=== PATIENT | female | born 1980 | race Two or more races ===

== ENCOUNTER 2018-04-26 23:24 | Emergency (ER) | payer MEDICAID ==
[~2018-04-26] VITALS: Ht 162.6 cm; Wt 72.6 kg
[2018-04-26] MEDS ORDERED: METRONIDAZOLE500 MG ORAL (23:42)
[2018-04-26] MEDS ORDERED: CIPRO250 MG ORAL (23:42)
[2018-04-27] MEDS ORDERED: Ketorolac 30mg Inj IV ONE
--- NOTE | 2018-04-27 | NUR ---
ED Nurse Note: RECIEVED PT ON GURNEY FROM HOME, AWAKE, ALERT AND ORIENTED X 4, PT HERE WITH C/O LOWER ABD PAIN X 1 WEEK, PT SEEN BY PMD AND STARTED ON ORAL ANTIBIOTICS BUT STATES PAIN IS WORSE IN LOWER ABD, MILD NAUSEA ALSO, EMESIS X 2 TODAY, PT DENEIS CP, SOB, FEVERS, OR ANY OTHER COMPLAINTS OR DISCOMFORTS, PT GOWNED AND URINE SAMPLE COLLECTED, WILL RESUME CARE ORDERED AND CONTINUE TO CLOSELY MONITOR.
[2018-04-27] MEDS ORDERED: Ketorolac 60mg Inj IM ONE (00:33)
[2018-04-27 00:40] VITALS: BP 116/71
[2018-04-27 00:42] LABS: BASOPHILS % (AUTO) 0.8 % (0.0-2.0); EOSINOPHILS % (AUTO) 2.8 % (0.0-3.0); HEMOGLOBIN 12.7 G/DL (12.0-16.0); LYMPHOCYTES % (AUTO) 21.1 % (20.0-45.0); MEAN CORPUSCULAR VOLUME 80 FL (80-99); MONOCYTES % (AUTO) 6.2 % (1.0-10.0); NEUTROPHILS % (AUTO) 69.2 % (45.0-75.0); PLATELET COUNT 263 K/UL (150-450); RED BLOOD COUNT 4.72 M/UL (4.20-5.40); RED CELL DISTRIBUTION WIDTH 12.9 % (11.6-14.8); WHITE BLOOD COUNT 10.9 K/UL (4.8-10.8)
[2018-04-27 00:43] LABS: APPEARANCE,URINE CLEAR; BILIRUBIN, URINE NEGATIVE (NEGATIVE); COLOR,URINE PALE YELLOW; GLUCOSE, URINE (UA) NEGATIVE (NEGATIVE); KETONES,URINE NEGATIVE (NEGATIVE); LEUKOCYTE ESTERASE ,URINE 1+ (NEGATIVE); NITRITE,URINE NEGATIVE (NEGATIVE); PH,URINE 5 (4.5-8.0); PROTEIN,URINE NEGATIVE (NEGATIVE); UROBILINOGEN,URINE NORMAL MG/DL (0.0-1.0)
[2018-04-27 00:58] LABS: ANION GAP 7 mmol/L (5-15); BLOOD UREA NITROGEN 17 mg/dL (7-18); CARBON DIOXIDE 26 MMOL/L (21-32); CHLORIDE 104 MMOL/L (98-107); CREATININE 0.8 MG/DL (0.55-1.30); POTASSIUM 3.6 MMOL/L (3.5-5.1); SODIUM 137 MMOL/L (136-145)
[2018-04-27 01:03] LABS: ALANINE AMINOTRANSFERASE 28 U/L (12-78); ALBUMIN 3.9 G/DL (3.4-5.0); ALBUMIN/GLOBULIN RATIO 1.3 (1.0-2.7); ALKALINE PHOSPHATASE 57 U/L (46-116); ASPARTATE AMINO TRANSFERASE 16 U/L (15-37); BILIRUBIN,TOTAL 0.2 MG/DL (0.2-1.0)
[2018-04-27 02:00] VITALS: BP 124/63
--- NOTE | 2018-04-27 02:00 | NUR ---
ED Nurse Note: PT CONTINUES TO REST QUIETLY IN BED, AWAKE AND ALERT, PT MEDICATED FOR PAIN, MEDS EFFECTIVE, PAIN LEVEL AT 1/10, NO CP, NO SOB, IV SITE PATENT WITH FLUIDS INFUSING, TOLERATING WELL, NAUSEA RESOLVED ALSO, PT ON CARDIAC MONITORING, WILL RESUME CARE AND CONTINUE TO CLOSELY MONITOR.
--- NOTE | 2018-04-27 03:26 | Emergency Room Report ---
History of Present Illness General Chief Complaint: Abdominal Pain Source: Patient Present Illness HPI Patient presents with left lower quadrant pain this began back in February when she had a massage. She feels that something happened at that time. Last she had a pelvic exam. The doctor did a rectovaginal exam that was painful for the patient. She feels that the pain was exacerbated that time. She was started on Cipro and Flagyl for vaginal bacterial infection. She's felt dizziness and feverish but no documented temperature. Still feels nausea. The pain is rated 9/10, aching pressure. It radiated to his somewhat towards her back. She rates the pain 10/10 at this time. The patient's last period was April 09 and normal for her. She denies renal stones or dysuria. There is no vaginal discharge. No upper respiratory symptoms, dyspnea, cough chest pain. Allergies: Coded Allergies: No Known Allergies (Unverified , 04/26/18) Patient History Past Medical History: see triage record Social History: Denies: smoking Social History Narrative Last Menstrual Period: 03/09/2018 Now: No Reviewed Nursing Documentation: PMH: Agreed; PSxH: Agreed Nursing Documentation-PMH Past Medical History: No Stated History Review of Systems All Other Systems: negative except mentioned in HPI Physical Exam Vital Signs Date Time Temp Pulse Resp B/P (MAP) Pulse Ox O2 Delivery O2 Flow Rate FiO2 04/26/18 23:36 97.7 86 16 124/73 98 Room Air Sp02 EP Interpretation: reviewed, normal General Appearance: well appearing, no apparent distress, GCS 15 Head: normocephalic Eyes: bilateral eye normal inspection, bilateral eye PERRL ENT: moist mucus membranes Neck: supple Respiratory: lungs clear, normal breath sounds Cardiovascular #1: regular rate, rhythm Cardiovascular #2: 2+ radial (R) Gastrointestinal: normal inspection, normal bowel sounds, non-distended, no rebound, guarding - Minimal, tenderness - Left lower quadrant, overweight Genitourinary: no CVA tenderness Musculoskeletal: back normal, gait/station normal, normal range of motion Neurologic: alert, oriented x3, grossly normal Psychiatric: mood/affect normal Skin: normal inspection, warm/dry Medical Decision Making Diagnostic Impression: Primary Impression: Pelvic pain Additional Impression: Yeast vaginitis ER Course Patient presents with left lower quadrant pain on Flagyl and Cipro. Differential includes ovarian cyst, ovarian torsion, muscle strain, tubo- ovarian abscess, UTI, pyelonephritis, diverticulitis amongst others. Patient will be evaluated with labs. The patient will receive IV hydration and analgesia. Depending on results she may undergo CT or ultrasound. Patient slightly improved after receiving analgesia. White count minimally elevated. CMP normal. Urinalysis with yeast. Because of leukocytosis and pain ultrasound is ordered. Ultrasound unremarkable. The patient had refused transvaginal exam - see report below If this were diverticulitis she is already on medications. The abdominal exam is nonsurgical. Pain is resolved. Discussed findings with patient and . Also discussed treatment plan. Advised that she needed to follow-up. She was given copies of the ultrasound report and labs. Patient stable for outpatient observation and treatment. Laboratory Tests Test 04/27/18 00:15 White Blood Count 10.9 K/UL (4.8-10.8) H Red Blood Count 4.72 M/UL (4.20-5.40) Hemoglobin 12.7 G/DL (12.0-16.0) Hematocrit 38.0 % (37.0-47.0) Mean Corpuscular Volume 80 FL (80-99) Mean Corpuscular Hemoglobin 26.8 PG (27.0-31.0) L Mean Corpuscular Hemoglobin Concent 33.3 G/DL (32.0-36.0) Red Cell Distribution Width 12.9 % (11.6-14.8) Platelet Count 263 K/UL (150-450) Mean Platelet Volume 7.1 FL (6.5-10.1) Neutrophils (%) (Auto) 69.2 % (45.0-75.0) Lymphocytes (%) (Auto) 21.1 % (20.0-45.0) Monocytes (%) (Auto) 6.2 % (1.0-10.0) Eosinophils (%) (Auto) 2.8 % (0.0-3.0) Basophils (%) (Auto) 0.8 % (0.0-2.0) Prothrombin Time 10.5 SEC (9.30-11.50) Prothrombin Time INR 1.0 (0.9-1.1) PTT 27 SEC (23-33) Urine Color Pale yellow Urine Appearance Clear Urine pH 5 (4.5-8.0) Urine Specific [place] 1.015 (1.005-1.035) Urine Protein Negative (NEGATIVE) Urine Glucose (UA) Negative (NEGATIVE) Urine Ketones Negative (NEGATIVE) Urine Blood Negative (NEGATIVE) Urine Nitrite Negative (NEGATIVE) Urine Bilirubin Negative (NEGATIVE) Urine Urobilinogen Normal MG/DL (0.0-1.0) Urine Leukocyte Esterase 1+ (NEGATIVE) H Urine RBC 0-2 /HPF (0 - 2) Urine WBC 0-2 /HPF (0 - 2) Urine Squamous Epithelial Cells Few /LPF (NONE/OCC) Urine Bacteria Few /HPF (NONE) Urine Yeast Occasional /HPF (NONE) H Urine HCG, Qualitative Negative (NEGATIVE) Sodium Level 137 MMOL/L (136-145) Potassium Level 3.6 MMOL/L (3.5-5.1) Chloride Level 104 MMOL/L (98-107) Carbon Dioxide Level 26 MMOL/L (21-32) Anion Gap 7 mmol/L (5-15) Blood Urea Nitrogen 17 mg/dL (7-18) Creatinine 0.8 MG/DL (0.55-1.30) Estimate Glomerular Filtration Rate > 60 mL/min (>60) Glucose Level 104 MG/DL (74-106) Calcium Level 9.0 MG/DL (8.5-10.1) Total Bilirubin 0.2 MG/DL (0.2-1.0) Aspartate Amino Transferase (AST) 16 U/L (15-37) Alanine Aminotransferase (ALT) 28 U/L (12-78) Alkaline Phosphatase 57 U/L (46-116) Total Protein 6.9 G/DL (6.4-8.2) Albumin 3.9 G/DL (3.4-5.0) Globulin 3.0 g/dL Albumin/Globulin Ratio 1.3 (1.0-2.7) Lipase 168 U/L (73-393) CT/MRI/US Diagnostic Results CT/MRI/US Diagnostic Results : Imaging Test Ordered: pelvic Impression Thickened endometrial complex in the setting of a negative beta-hCG. Assessment is limited without transvaginal examination. Differential may include hyperplasia or neoplasm. Further workup/follow-up suggested. Last Vital Signs Date Time Temp Pulse Resp B/P (MAP) Pulse Ox O2 Delivery O2 Flow Rate FiO2 04/27/18 04:40 98.6 80 18 129/72 100 Room Air Status: improved Disposition: HOME, SELF-CARE Condition: Improved Scripts Clotrimazole (GYNE-LOTRIMIN*) 45 Gm Cream.appl 1 APPLIC VG QHS for 7 Days, #45 GM 0 Refills Prov: Rohit Cadena MD 04/27/18 Tramadol Hcl* (ULTRAM*) 50 Mg Tablet 50 MG ORAL Q6H PRN for For Pain, #8 TAB 0 Refills Prov: Rohit Cadena MD 04/27/18 Ibuprofen* (MOTRIN*) 600 Mg Tablet 600 MG ORAL Q6H PRN for For Pain, #20 TAB Prov: Rohit Cadena MD 04/27/18 Rohit Cadena MD Apr 27, 2018 03:26
--- NOTE | 2018-04-27 03:44 | Diagnostic Imaging Report ---
EXAM: US Pelvis Complete, Transabdominal CLINICAL HISTORY: ABD PAIN TECHNIQUE: Real-time transabdominal pelvic ultrasound (complete) with image documentation. COMPARISON: No relevant prior studies available. FINDINGS: Uterus/cervix: Endometrial complex measures 2 cm. No uterine mass or fibroid. Right ovary: Blood flow to both ovaries. Right ovary measures 3.3 x 3. 8 x 2.3 cm. Left ovary measures 4.2 x 4.1 x 2.9 cm. Left ovary: See above. Free fluid: Free fluid in the pelvic cul-de-sac is nonspecific and small-volume. No adnexal masses. Bladder: Unremarkable as visualized. Wall is normal thickness for degree of distention. Other findings: The hCG is reported to be negative. Patient refused transvaginal examination. IMPRESSION: Thickened endometrial complex in the setting of a negative beta-hCG. Assessment is limited without transvaginal examination. Differential may include hyperplasia or neoplasm. Further workup/follow-up suggested. <MYCVCSECTION> Critical Value Communications 04/27/18 03:55 Verify Receipt Verified receipt with Dr. Cadena (also relayed verbal) on 04/27 03:54 (-08:00)
--- NOTE | 2018-04-27 04:00 | NUR ---
ED Nurse Note: PT RETURNED FROM ULTRASOUND, PAIN AT 2/10, DENIES NAUSEA OR EMESIS, PT STATES SHE FEELS BETTER, REPLACED ON MONITORING, IV SITE PATENT, AT BEDSIDE, WILL CONTINUE TO CLOSELY MONITOR AND PREPARE FOR DISPO AFTER RESULTS.
[2018-04-27 04:15] VITALS: BP 129/72
[2018-04-27] MEDS ORDERED: GYNE-LOTRIMIN45 GM VG (04:16)
[2018-04-27] MEDS ORDERED: IBUPROFEN600 MG ORAL (04:16)
[2018-04-27] MEDS ORDERED: TRAMADOL HCL50 MG ORAL (04:16)
--- NOTE | 2018-04-27 04:30 | NUR ---
ED Nurse Note: PT BEING D/C TO HOME, AWAKE, ALERT AND ORIENTED X 4, AMBULATORY, NO PAIN, NO EMESIS, NO SOB OR LABORED BREATHING, PT AND SPOUSE GIVEN F/U INFO,A FTER CARE INSTRUCTIONS AND RE-VERBALIZES PROPER MEDICATION ADMINISTRATION AND S/S TO MONITOR FOR, PT IV LINE AND ARMBAND REMOVED WITHOUT COMPLICATIONS, NAD NOTED DURING D/C TO HOME.
[2018-04-27 04:40] VITALS: BP 129/72
== END 2018-04-27 04:40 | disposition home or self-care (01) ==
LOC: EMR 23:55
DX: R10.2 Pelvic and perineal pain (principal); B37.3 Candidiasis of vulva and vagina
CPT/HCPCS: 36415; 76856; 80053; 81003; 81025; 83690; 85025; 85610; 85730; 87086; 96361; 96372; 96374; 96375; 99284; J2405

== ENCOUNTER 2020-01-25 10:35 | Emergency (ER) | payer MEDICAID ==
[~2020-01-25] VITALS: Ht 162.6 cm; Wt 79.4 kg
[~2020-01-25 10:35] MED LIST: CIPRO250 MG ORAL; GYNE-LOTRIMIN45 GM VG; IBUPROFEN600 MG ORAL; METRONIDAZOLE500 MG ORAL; TRAMADOL HCL50 MG ORAL
[2020-01-25 10:50] VITALS: BP 145/98
--- NOTE | 2020-01-25 10:50 | NUR ---
ED Nurse Note: Patient from home and walked in due to Right side CP and SOB x 3-4 days. 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 urine drawn and sent to lab. ekg done at bedside. xr at bedside
--- NOTE | 2020-01-25 11:58 | Emergency Room Report ---
History of Present Illness General Chief Complaint: Chest Pain Source: Patient Present Illness HPI Patient presents with right-sided chest pain for 3 to 4 days. Yesterday the pain was worse and she had some tingling in her feet and dry mouth. Pain is better at this time in her chest. She calls it "hard pain" on the right-hand side. She took ibuprofen at 9 AM. It is helping somewhat with the pain. She denies fevers or chills. There is no productive cough. Yesterday when the pain was worse she had some palpitations and shortness of breath. She felt dizziness at that time and extremely anxious. She also complains about some mid abdominal pain and some spotting. Her last menstruation was on the 16th and normal for her. She is not sure why she is spotting at this time. Post tubal ligation. She was evaluated April 26, 2018. An ultrasound was performed. She was given copies of the ultrasound and labs and told to follow-up. It is unclear what the final diagnosis was at that time. This is a copy of the ultrasound report: Thickened endometrial complex in the setting of a negative beta-hCG. Assessment is limited without transvaginal examination. Differential may include hyperplasia or neoplasm. Further workup/follow-up suggested. Patient denies exposure to Covid positive contacts. No sore throat, nausea, vomiting, diarrhea, dysuria, abdominal pain, joint pain, rashes, visual changes, headache. 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 Last Menstrual Period: 01/12/20 Reviewed Nursing Documentation: PMH: Agreed; PSxH: Agreed Review of Systems All Other Systems: negative except mentioned in HPI Physical Exam Vital Signs Date Time Temp Pulse Resp B/P (MAP) Pulse Ox O2 Delivery O2 Flow Rate FiO2 01/25/20 10:40 98.2 01 15 143/111 (122) 95 Room Air Sp02 EP Interpretation: reviewed, normal - At's bedside pulse oximetry is 99% General Appearance: well appearing, no apparent distress, GCS 15, non-toxic Head: normocephalic Eyes: bilateral eye normal inspection, bilateral eye PERRL, bilateral eye EOMI ENT: normal pharynx, moist mucus membranes Neck: full range of motion, supple Respiratory: lungs clear, normal breath sounds, other - Some right-sided chest wall tenderness Cardiovascular #1: regular rate, rhythm, no edema Cardiovascular #2: 2+ radial (R) Gastrointestinal: normal inspection, normal bowel sounds, non tender, no mass, non-distended Musculoskeletal: back normal, normal range of motion, no calf tenderness, gait/station normal Neurologic: alert, oriented x3, grossly normal Psychiatric: anxious - And occasionally tearful Skin: no rash, warm/dry Medical Decision Making Diagnostic Impression: Primary Impression: Chest pain Qualified Codes: R07.9 - Chest pain, unspecified Additional Impressions: Dysfunctional uterine bleeding Hyperventilation ER Course Patient presents with right-sided chest pain. In addition she has some spotting at this time which is abnormal for her. Differential for the chest pain includes costochondritis, pleurisy, hyperventilation, pulmonary embolus, pneumonia, chest wall strain amongst others. Evaluation with EKG, chest x-ray and labs. Regarding the spotting differential includes dysfunctional uterine bleeding, early (even though post tubal ligation), urinary tract infec tion amongst others. Evaluation with urinalysis. The patient is treated with a dose of Toradol. EKG without injury. Chest x-ray normal. Labs unremarkable. Of significance troponin and D-dimer are negative. Patient improved with treatment and pain is improved. In discussing the results and treatment plan the patient is tearful and anxious. I inquired whether she feels safe at home and she said yes. The sensation yesterday of shortness of breath, palpitations, tingling in her extremities makes her feel very uncomfortable. In addition she is concerned about the spotting. Patient reassured that there is no medical emergency at this time however that she needs to follow-up with her own physician. No apparent medical emergency at this time. Patient stable for outpatient observation and treatment. Laboratory Tests Test 01/25/20 11:00 White Blood Count 10.7 K/UL (4.8-10.8) Red Blood Count 4.94 M/UL (4.20-5.40) Hemoglobin 14.6 G/DL (12.0-16.0) Hematocrit 42.6 % (37.0-47.0) Mean Corpuscular Volume 86 FL (80-99) Mean Corpuscular Hemoglobin 29.6 PG (27.0-31.0) Mean Corpuscular Hemoglobin Concent 34.4 G/DL (32.0-36.0) Red Cell Distribution Width 13.4 % (11.6-14.8) Platelet Count 257 K/UL (150-450) Mean Platelet Volume 7.3 FL (6.5-10.1) Neutrophils (%) (Auto) 78.2 % (45.0-75.0) H Lymphocytes (%) (Auto) 15.9 % (20.0-45.0) L Monocytes (%) (Auto) 4.4 % (1.0-10.0) Eosinophils (%) (Auto) 0.9 % (0.0-3.0) Basophils (%) (Auto) 0.6 % (0.0-2.0) Prothrombin Time 10.7 SEC (9.30-11.50) Prothrombin Time INR 1.0 (0.9-1.1) Activated Partial Thromboplast Time 25 SEC (23-33) D-Dimer 0.22 mg/L FEU (0.00-0.49) Urine Color Pale yellow Urine Appearance Clear Urine pH 7 (4.5-8.0) Urine Specific [place] 1.005 (1.005-1.035) Urine Protein Negative (NEGATIVE) Urine Glucose (UA) Negative (NEGATIVE) Urine Ketones Negative (NEGATIVE) Urine Blood 2+ (NEGATIVE) H Urine Nitrite Negative (NEGATIVE) Urine Bilirubin Negative (NEGATIVE) Urine Urobilinogen Normal MG/DL (0.0-1.0) Urine Leukocyte Esterase Negative (NEGATIVE) Urine RBC 0-2 /HPF (0 - 2) Urine WBC 0 /HPF (0 - 2) Urine Squamous Epithelial Cells Occasional /LPF Urine Bacteria None /HPF (NONE) Urine HCG, Qualitative Negative (NEGATIVE) Sodium Level 140 MMOL/L (136-145) Potassium Level 3.6 MMOL/L (3.5-5.1) Chloride Level 105 MMOL/L (98-107) Carbon Dioxide Level 24 MMOL/L (21-32) Anion Gap 11 mmol/L (5-15) Blood Urea Nitrogen 13 mg/dL (7-18) Creatinine 0.8 MG/DL (0.55-1.30) Estimated Glomerular Filtration Rate > 60 mL/min (>60) Glucose Level 146 MG/DL (74-106) H Calcium Level 8.8 MG/DL (8.5-10.1) Total Bilirubin 0.4 MG/DL (0.2-1.0) Aspartate Amino Transferase (AST) 23 U/L (15-37) Alanine Aminotransferase (ALT) 44 U/L (12-78) Alkaline Phosphatase 55 U/L (46-116) Total Creatine Kinase 93 U/L (26-308) Troponin I 0.000 ng/mL (0.000-0.056) Pro-B-Type Natriuretic Peptide 31 pg/mL (0-125) Total Protein 7.5 G/DL (6.4-8.2) Albumin 4.1 G/DL (3.4-5.0) Globulin 3.4 g/dL Albumin/Globulin Ratio 1.2 (1.0-2.7) EKG Diagnostic Results Rate: tachycardiac Rhythm: NSR ST Segments: no acute changes Rhythm Strip Diag. Results EP Interpretation: yes Rhythm: no PVC's, no ectopy, other - Sinus tachycardia rate 115 Chest X-Ray Diagnostic Results Chest X-Ray Diagnostic Results : Chest X-Ray Ordered: Yes # of Views/Limited/Complete: 1 View Indication: Chest Pain EP Interpretation: Yes Interpretation: no consolidation, no effusion, no pneumothorax Impression: No acute disease Electronically Signed by: Electronically signed by Rohit Cadena MD Last Vital Signs Date Time Temp Pulse Resp B/P (MAP) Pulse Ox O2 Delivery O2 Flow Rate FiO2 01/25/20 14:28 98.5 90 18 137/76 98 Room Air 99 Status: improved Disposition: HOME, SELF-CARE Condition: Improved Scripts Lorazepam* (ATIVAN*) 0.5 Mg Tablet 0.5 MG ORAL THREE TIMES A DAY PRN for anxiety/hyperventilation, #4 TAB Prov: Rohit Cadena MD 01/25/20 Famotidine* (Pepcid 20mg tablet*) 20 Mg Tablet 20 MG ORAL DAILY, #20 TAB 0 Refills Prov: Rohit Cadena MD 01/25/20 Referrals: NON PHYSICIAN (PCP) Rohit Cadena MD Jan 25, 2020 11:58
[2020-01-25] MEDS ORDERED: Ketorolac 30mg Inj IV ONE (12:15)
[2020-01-25 12:31] LABS: BASOPHILS % (AUTO) 0.6 % (0.0-2.0); EOSINOPHILS % (AUTO) 0.9 % (0.0-3.0); HEMATOCRIT 42.6 % (37.0-47.0); HEMOGLOBIN 14.6 G/DL (12.0-16.0); LYMPHOCYTES % (AUTO) 15.9 % (20.0-45.0); MEAN CORPUSCULAR VOLUME 86 FL (80-99); MONOCYTES % (AUTO) 4.4 % (1.0-10.0); NEUTROPHILS % (AUTO) 78.2 % (45.0-75.0); PLATELET COUNT 257 K/UL (150-450); RED BLOOD COUNT 4.94 M/UL (4.20-5.40); RED CELL DISTRIBUTION WIDTH 13.4 % (11.6-14.8); WHITE BLOOD COUNT 10.7 K/UL (4.8-10.8)
[2020-01-25 12:37] LABS: APPEARANCE,URINE CLEAR; BILIRUBIN, URINE NEGATIVE (NEGATIVE); COLOR,URINE PALE YELLOW; GLUCOSE, URINE (UA) NEGATIVE (NEGATIVE); KETONES,URINE NEGATIVE (NEGATIVE); LEUKOCYTE ESTERASE ,URINE NEGATIVE (NEGATIVE); NITRITE,URINE NEGATIVE (NEGATIVE); PH,URINE 7 (4.5-8.0); PROTEIN,URINE NEGATIVE (NEGATIVE); UROBILINOGEN,URINE NORMAL MG/DL (0.0-1.0)
[2020-01-25 12:38] LABS: ANION GAP 11 mmol/L (5-15); BLOOD UREA NITROGEN 13 mg/dL (7-18); CALCIUM 8.8 MG/DL (8.5-10.1); CARBON DIOXIDE 24 MMOL/L (21-32); CHLORIDE 105 MMOL/L (98-107); CREATININE 0.8 MG/DL (0.55-1.30); POTASSIUM 3.6 MMOL/L (3.5-5.1); SODIUM 140 MMOL/L (136-145)
[2020-01-25 12:49] LABS: ALANINE AMINOTRANSFERASE 44 U/L (12-78); ALBUMIN 4.1 G/DL (3.4-5.0); ALBUMIN/GLOBULIN RATIO 1.2 (1.0-2.7); ALKALINE PHOSPHATASE 55 U/L (46-116); ASPARTATE AMINO TRANSFERASE 23 U/L (15-37); BILIRUBIN,TOTAL 0.4 MG/DL (0.2-1.0); CREATINE KINASE 93 U/L (26-308)
[2020-01-25] MEDS ORDERED: Albuterol ud Inhalation HHN ONE (13:30)
[2020-01-25] MEDS ORDERED: Ipratropium 0.02% Inh Soln 2.5ml UD HHN ONE (13:30)
[2020-01-25] MEDS ORDERED: TRAMADOL HCL50 MG ORAL (13:35)
[2020-01-25] MEDS ORDERED: FAMOTIDINE20 MG ORAL (13:35)
[2020-01-25] MEDS ORDERED: ATIVAN0.5 MG ORAL (13:41)
[2020-01-25 14:28] VITALS: BP 137/76
--- NOTE | 2020-01-25 14:28 | NUR ---
ER DISCHARGE NOTE: Patient is cleared to be discharged per ERMD, pt is aox4, on room air, with stable vital signs. pt was given dc instructions, pt was able to verbalize understanding, pt id band and iv site removed without complications. pt is able to ambulate with steady gait. pt took all belongings.
--- NOTE | 2020-01-25 17:33 | Diagnostic Imaging Report ---
FILM CXR 1 VIEW INDICATION: Chest pain COMPARISON: None FINDINGS: Single frontal view demonstrates a normal cardiomediastinal silhouette. The lungs are clear. No pleural effusions. The visualized osseous structures are within normal limits. IMPRESSION: No acute cardiopulmonary disease.
== END 2020-01-25 14:50 | disposition home or self-care (01) ==
LOC: EMR 10:50
DX: R07.9 Chest pain, unspecified (principal); N93.8 Other specified abnormal uterine and vaginal bleeding; R06.4 Hyperventilation; Z98.51 Tubal ligation status
CPT/HCPCS: 36415; 71045; 80053; 81003; 81025; 82550; 83880; 84484; 85025; 85379; 85610; 85730; 93005; 96374; J1885; Z7502; 99284